=== PATIENT | male | born 1940 | race Caucasian/White ===

== ENCOUNTER 2017-05-09 12:01 | Inpatient (IN) | payer OTHER ==
[~2017-05-09] VITALS: Ht 172.7 cm; Wt 67.6 kg
[~2017-05-09 12:01] MED LIST: ASPIR 8181 MG PO; CEL20 PO; COL100 PO; FINASTERIDE5 M1 PO; FLO4 PO; MIRALAX17 GM/Dose PO; PEPCID20 MG PO; SYNTHROID0.1 MG PO
[2017-05-09 14:00] LABS: BASOPHIL % 0.7 % (0-2)
[2017-05-09 14:02] LABS: PLATELET COUNT 80 x10^3mcL (130-400); RED CELL DISTRIBUTION WIDTH 19.1 % (11.5-14.5)
[2017-05-09 14:29] LABS: CALCIUM 8.5 mg/dL (8.5-10.1); CARBON DIOXIDE 24.6 mmol/L (21-32); CHLORIDE SERUM 110 mmol/L (98-107); CREATININE SERUM 1.1 mg/dL (0.7-1.3); GLUCOSE SERUM 84 mg/dL (74-106); POTASSIUM SERUM 4.3 mmol/L (3.5-5.1); SODIUM SERUM 142 mmol/L (136-145)
[2017-05-09 14:41] LABS: ALKALINE PHOSPHATASE 99 U/L (46-116); ALT/SGPT 54 U/L (16-63); AST/SGOT 64 U/L (15-37); BILIRUBIN TOTAL 0.8 mg/dL (0.20-1.00)
[2017-05-09 14:43] LABS: ALBUMIN 2.6 g/dL (3.4-5.0); TOTAL PROTEIN, SERUM 8.3 g/dL (6.4-8.2)
[2017-05-09 15:57] VITALS: BP 149/78
[2017-05-09 16:02] VITALS: Ht 172.7 cm; Wt 67.6 kg
[2017-05-09 16:09] LABS: MAGNESIUM 2.1 mg/dL (1.8-2.4); PHOSPHOROUS 3.6 mg/dL (2.5-4.9)
[2017-05-09 16:11] LABS: CHOLESTEROL/HDL RATIO 2.2; FREE T4 1.13 ng/dL (0.76-1.46); FREE THYROXINE INDEX 2.6 ug/dL (1.4-4.5); T4(THYROXINE) 8.2 ug/dL (4.7-13.3)
[2017-05-09 16:12] LABS: T3 TOTAL 0.88 ng/mL
[2017-05-09 17:05] VITALS: BP 149/78
[2017-05-09 20:01] LABS: RED BLOOD CELLS 3.48 M/mm3 (4.52-5.90)
[2017-05-09 20:05] LABS: IRON 86 ug/dL (65-170); TOTAL IRON BINDING CAPACITY 435 ug/dL (250-450)
[2017-05-09 21:53] VITALS: BP 132/72
[2017-05-10 01:21] LABS: UA SPECIFIC GRAVITY 1.015 (1.005-1.035); microscopic required? YES; urine erythrocyte 1+ (NEGATIVE)
[2017-05-10 01:30] LABS: AMPHETAMINE QUAL UR NONE DETECTED (NEG <=1000)
[2017-05-10 04:53] VITALS: BP 137/72
[2017-05-10 06:14] LABS: BASOPHIL % 0.4 % (0-2)
[2017-05-10 06:33] LABS: CALCIUM 7.9 mg/dL (8.5-10.1); CARBON DIOXIDE 23.7 mmol/L (21-32); CHLORIDE SERUM 110 mmol/L (98-107); GLUCOSE SERUM 86 mg/dL (74-106); MAGNESIUM 1.9 mg/dL (1.8-2.4); PHOSPHOROUS 3.2 mg/dL (2.5-4.9); POTASSIUM SERUM 3.9 mmol/L (3.5-5.1); SODIUM SERUM 140 mmol/L (136-145)
[2017-05-10 06:34] LABS: PLATELET COUNT 82 x10^3mcL (130-400); RED CELL DISTRIBUTION WIDTH 19.5 % (11.5-14.5)
[2017-05-10 08:01] VITALS: BP 119/66
[2017-05-10 12:12] VITALS: BP 117/75
[2017-05-10 16:24] VITALS: BP 142/72
[2017-05-10 18:41] LABS: BASOPHIL % 0.5 % (0-2)
[2017-05-10 18:42] LABS: PLATELET COUNT 98 x10^3mcL (130-400); RED CELL DISTRIBUTION WIDTH 19.1 % (11.5-14.5)
[2017-05-10 20:48] VITALS: BP 127/73
[2017-05-11 05:37] VITALS: BP 147/77
[2017-05-11 06:50] LABS: BASOPHIL % 0.5 % (0-2); PLATELET COUNT 109 x10^3mcL (130-400); RED CELL DISTRIBUTION WIDTH 18.6 % (11.5-14.5)
[2017-05-11 07:11] LABS: CARBON DIOXIDE 19.9 mmol/L (21-32); CHLORIDE SERUM 111 mmol/L (98-107); POTASSIUM SERUM 4.1 mmol/L (3.5-5.1); SODIUM SERUM 140 mmol/L (136-145)
[2017-05-11 07:12] LABS: CALCIUM 8.3 mg/dL (8.5-10.1); CREATININE SERUM 1.1 mg/dL (0.7-1.3); GLUCOSE SERUM 89 mg/dL (74-106)
[2017-05-11 08:00] VITALS: BP 144/71
[2017-05-11] MEDS ORDERED: XIFAXAN550 M1 PO (08:58)
[2017-05-11 12:06] VITALS: BP 139/70
[2017-05-11 13:15] VITALS: BP 139/70
== END 2017-05-11 15:05 | disposition home or self-care (01) | DRG 391 ==
LOC: ED 12:01 → DU 15:01
PROVIDERS: Emergency Medicine; Student in an Organized Health Care Education/Training Program; ADMIT Family Medicine
DX: K21.9 Gastro-esophageal reflux disease without esophagitis (principal); E43 Unspecified severe protein-calorie malnutrition; K74.69 Other cirrhosis of liver; B18.2 Chronic viral hepatitis C; R31.9 Hematuria, unspecified; D63.8 Anemia in other chronic diseases classified elsewhere; E03.9 Hypothyroidism, unspecified; D69.59 Other secondary thrombocytopenia; Z68.22 Body mass index [BMI] 22.0-22.9, adult
CPT/HCPCS: 83880; 84439; J2270; J7030; Q0092

== ENCOUNTER 2018-10-12 14:15 | Emergency (ER) | payer OTHER ==
[~2018-10-12] VITALS: Ht 175.3 cm; Wt 63.5 kg
[~2018-10-12 14:15] MED LIST changes: +XIFAXAN550 M1 PO
[2018-10-12 15:13] VITALS: Ht 175.3 cm; Wt 63.5 kg
[2018-10-12 15:48] LABS: BASOPHIL % 0.7 % (0-2)
[2018-10-12 15:55] LABS: RED CELL DISTRIBUTION WIDTH 17.2 % (11.5-14.5)
[2018-10-12 15:56] LABS: PLATELET COUNT 126 x10^3mcL (130-400)
[2018-10-12 16:01] LABS: CALCIUM 8.5 mg/dL (8.5-10.1); CARBON DIOXIDE 28.9 mmol/L (21-32); CHLORIDE SERUM 106 mmol/L (98-107); CREATININE SERUM 1.3 mg/dL (0.7-1.3); GLUCOSE SERUM 81 mg/dL (74-106); POTASSIUM SERUM 3.9 mmol/L (3.5-5.1); SODIUM SERUM 140 mmol/L (136-145)
[2018-10-12 16:07] LABS: ALKALINE PHOSPHATASE 59 U/L (46-116); ALT/SGPT 32 U/L (16-63); AST/SGOT 49 U/L (15-37); BILIRUBIN TOTAL 1.5 mg/dL (0.20-1.00); LIPASE 115 IU/L (73-393)
[2018-10-12 16:09] LABS: ALBUMIN 2.3 g/dL (3.4-5.0)
[2018-10-12 23:45] VITALS: BP 139/86
== END 2018-10-12 23:45 | disposition short-term general hospital (02) ==
LOC: ED 14:15
PROVIDERS: Emergency Medicine
DX: J90 Pleural effusion, not elsewhere classified (principal); R53.1 Weakness
CPT/HCPCS: 83880; J7030; J7620; Q0092